=== PATIENT | female | born 1950 | race Caucasian/White ===

== ENCOUNTER 2017-02-26 16:57 | Emergency (ER) | payer OTHER ==
[~2017-02-26 16:57] MED LIST: ACCUNE1 INH; ACET500CAP PO; ALEVE220 MG PO; ASA5GR PO; BACLOFEN20 MG PO; BEN25 PO; BP MED; CALTRA600D PO; CIP5 PO; CLARIT10 PO; COZAAR100 MG PO; DEX4 PO; DITRO5 PO; DULERA 200 MCG/13 GM INH; MULTIPLE VIT PO; NEUR300 PO; NORCO1 TA2 PO; NORV10 PO; PRILO PO; PRILOSEC40 MG PO; PRIN5 PO; PROVENTSOL INH; PROZ10 PO; ROBITUSS11 OR; SINGULAIR1 PO; SPIRIVA INH; SYMBICORT 160/41 INH INH; T PO; TRAZ100 PO; VOLT75 PO; ZOFRAN ODT4 MG PO
[2017-02-26 17:21] LABS: BASOPHILS 0.4 %; BASOPHILS ABSOLUTE 0.03 10/3/uL (0.0-0.16); EOSINOPHILS 1.2 %; ER CBC TAT 0 Hrs 07 Mins; IMMATURE GRANULOCYTES 0.2 %; IMMATURE GRANULOCYTES ABSOLUTE 0.02 10/3/uL (0.0-0.11); LYMPHOCYTES 25.9 %; LYMPHOCYTES ABSOLUTE 2.19 10/3/uL (0.67-4.30); MEAN CORPUSCULAR HEMOGLOB 30.3 pg (26.0-34.0); MEAN PLATELET VOLUME 10.1 fL (9.2-13.0); MONOCYTES 8.9 %; MONOCYTES ABSOLUTE 0.75 10/3/uL (0.21-1.20); NEUTROPHILS 63.4 %; NEUTROPHILS ABSOLUTE 5.36 10/3/uL (2.02-8.40); PLATELET COUNT 224 10/3/uL (150-400); RBC DISTRIBUTION WIDTH 12.9 % (12.0-16.0); WHITE BLOOD CELLS 8.5 10/3/uL (4.5-10.5)
[2017-02-26 17:22] LABS: HEMATOCRIT 40.1 % (36.0-48.0); HEMOGLOBIN 13.7 g/dL (12.0-16.0); MANUAL DIFF NO %; MEAN CORPUS HGB CONC 34.2 g/dL (32.0-36.0); MEAN CORPUSCULAR VOLUME 88.7 fL (80-100); RED CELL COUNT 4.52 10/6/uL (4.0-5.6)
[2017-02-26 17:38] LABS: CALCIUM, SERUM 9.1 MG/DL (8.5-10.4); CHEST PAIN PROFILE TAT 0 Hrs 24 Mins; CHLORIDE, SERUM 104 MMOL/L (96-112); GFR AFRICAN AMERICAN 68 ML/MIN (>=60); GFR NON AFRICAN AMERICAN 59 ML/MIN (>=60); SODIUM, SERUM 139 MMOL/L (135-148); TROPONIN I <0.02 NG/ML (<0.05)
[2017-02-26 17:39] LABS: BUN (BLOOD UREA NITROGEN) 13 MG/DL (6-23); CO2 (CARBON DIOXIDE) 28 MMOL/L (24-34); GLUCOSE, SERUM 100 MG/DL (60-99)
[2017-02-26 17:49] LABS: PARTIAL THROMBO TIME 26.6 SEC (22.5-37.2)
[2017-02-26 18:32] LABS: PROTIME (NOT ORD) 12.8 SEC (12.0-14.5)
== END 2017-02-26 21:25 | disposition left against medical advice (07) ==
LOC: ER 16:57
PROVIDERS: Emergency Medicine
DX: Z53.21 Procedure and treatment not carried out due to patient leaving prior to being seen by health care provider (principal); Z79.899 Other long term (current) drug therapy
CPT/HCPCS: 71020; 80048; 83735; 84484; 85025; 85610; 85730; 93005